=== PATIENT | female | born 1980 | race Caucasian/White ===

== ENCOUNTER 2018-11-14 10:53 | Inpatient (IN) | payer OTHER ==
[~2018-11-14] VITALS: Ht 160 cm; Wt 82.1 kg
[2018-11-14 10:58] VITALS: Ht 160 cm; Wt 82.1 kg
[2018-11-14 12:36] LABS: microscopic required? NO
[2018-11-14 12:44] LABS: urine erythrocyte NEGATIVE (NEGATIVE)
[2018-11-14 12:47] LABS: CALCIUM 7.9 mg/dL (8.5-10.1); CARBON DIOXIDE 27.2 mmol/L (21-32); CHLORIDE SERUM 102 mmol/L (98-107); CREATININE SERUM 0.7 mg/dL (0.6-1.0); GFR1 > 60 mL/min; GLUCOSE SERUM 110 mg/dL (74-106); POTASSIUM SERUM 3.5 mmol/L (3.5-5.1); SODIUM SERUM 136 mmol/L (136-145)
[2018-11-14 12:49] LABS: BASOPHIL % 0.1 % (0-2); PLATELET COUNT 216 x10^3mcL (130-400)
[2018-11-14 12:59] LABS: ALKALINE PHOSPHATASE 103 U/L (46-116); ALT/SGPT 21 U/L (14-59); AST/SGOT 14 U/L (15-37); BILIRUBIN TOTAL 0.6 mg/dL (0.20-1.00); T4(THYROXINE) 7.7 ug/dL (4.7-13.3)
[2018-11-14 13:03] LABS: ALBUMIN 3.2 g/dL (3.4-5.0)
[2018-11-14 13:04] LABS: RED CELL DISTRIBUTION WIDTH 18.7 % (11.5-14.5)
[2018-11-14 13:44] LABS: rbc morphology (normal/abnorm) ABNORMAL (NORMAL)
[2018-11-14 15:13] LABS: RED BLOOD CELLS 3.24 M/mm3 (4.10-5.10)
[2018-11-14 15:17] LABS: MAGNESIUM 1.8 mg/dL (1.8-2.4); PHOSPHOROUS 1.9 mg/dL (2.5-4.9)
[2018-11-14 15:21] LABS: CHOLESTEROL/HDL RATIO 2.8
[2018-11-14 15:38] LABS: TOTAL IRON BINDING CAPACITY 419 ug/dL (250-450)
[2018-11-14 15:40] LABS: IRON 8 ug/dL (50-170)
[2018-11-14 15:47] VITALS: BP 136/80
[2018-11-14 15:58] LABS: AMPHETAMINE QUAL UR POSITIVE (See below)
[2018-11-14 20:57] VITALS: BP 148/78
[2018-11-15 00:20] LABS: BASOPHIL % 0.4 % (0-2); PLATELET COUNT 221 x10^3mcL (130-400)
[2018-11-15 00:22] LABS: RED CELL DISTRIBUTION WIDTH 26.3 % (11.5-14.5)
[2018-11-15 00:23] LABS: rbc morphology (normal/abnorm) ABNORMAL (NORMAL)
[2018-11-15 00:45] VITALS: BP 148/78
[2018-11-15 05:52] VITALS: BP 124/55
[2018-11-15 06:41] LABS: CALCIUM 7.6 mg/dL (8.5-10.1); CARBON DIOXIDE 28.1 mmol/L (21-32); CHLORIDE SERUM 104 mmol/L (98-107); CREATININE SERUM 0.8 mg/dL (0.6-1.0); GFR1 > 60 mL/min; GLUCOSE SERUM 125 mg/dL (74-106); MAGNESIUM 1.9 mg/dL (1.8-2.4); PHOSPHOROUS 2.2 mg/dL (2.5-4.9); POTASSIUM SERUM 3.7 mmol/L (3.5-5.1); SODIUM SERUM 138 mmol/L (136-145)
[2018-11-15 08:52] LABS: BASOPHIL % 0.1 % (0-2); PLATELET COUNT 206 x10^3mcL (130-400)
[2018-11-15 08:53] LABS: RED CELL DISTRIBUTION WIDTH 26.4 % (11.5-14.5)
[2018-11-15 09:02] VITALS: BP 143/85
[2018-11-15 17:07] VITALS: BP 156/81
[2018-11-15 21:09] VITALS: BP 151/81
[2018-11-16 06:24] VITALS: BP 151/85
[2018-11-16 08:25] LABS: PLATELET COUNT 231 x10^3mcL (130-400)
[2018-11-16 08:36] LABS: CALCIUM 7.8 mg/dL (8.5-10.1); CARBON DIOXIDE 28.3 mmol/L (21-32); CHLORIDE SERUM 105 mmol/L (98-107); CREATININE SERUM 0.6 mg/dL (0.6-1.0); GFR1 > 60 mL/min; GLUCOSE SERUM 104 mg/dL (74-106); POTASSIUM SERUM 3.5 mmol/L (3.5-5.1); SODIUM SERUM 140 mmol/L (136-145)
[2018-11-16 08:51] LABS: RED CELL DISTRIBUTION WIDTH 26.2 % (11.5-14.5)
[2018-11-16 09:18] VITALS: BP 141/75
[2018-11-16] MEDS ORDERED: FER300 PO (11:42)
[2018-11-16] MEDS ORDERED: TAM75 PO (11:43)
[2018-11-16 11:48] LABS: BAND NEUTROPHIL 5 % (0-10); BASOPHIL 0 % (0-2); MONOCYTE 6 % (0-7); SEGMENTED NEUTROPHILS 67 % (37-75)
[2018-11-16 11:50] LABS: ovalocyte/elliptocyte 1+; rbc morphology (normal/abnorm) ABNORMAL (NORMAL); target cell (codocyte) 1+; tear drop cell (dacryocyte) 1+
[2018-11-16 11:51] LABS: PLATELET MORPHOLOGY LARGE PLATELET SEEN
[2018-11-16 13:48] VITALS: BP 141/75
== END 2018-11-16 14:49 | disposition home or self-care (01) | DRG 663 ==
LOC: ED 10:53 → MU 14:19
PROVIDERS: Emergency Medicine; ADMIT General Practice
PROC: 30233N1 Transfusion of Nonautologous Red Blood Cells into Peripheral Vein, Percutaneous Approach (ICD-10-PCS; principal; 2018-11-14)
DX: D62 Acute posthemorrhagic anemia (principal); E44.1 Mild protein-calorie malnutrition; N92.0 Excessive and frequent menstruation with regular cycle; E83.39 Other disorders of phosphorus metabolism; F15.10 Other stimulant abuse, uncomplicated; J11.1 Influenza due to unidentified influenza virus with other respiratory manifestations; E66.9 Obesity, unspecified; Z68.31 Body mass index [BMI] 31.0-31.9, adult; Z83.2 Family history of diseases of the blood and blood-forming organs and certain disorders involving the immune mechanism
CPT/HCPCS: 82962; 83880; 87804; 94150; J1885; J2405; J2916; J7030; J7040; J7050; P9016; Q0092; Q0163